=== PATIENT | female | born 1950 | race Caucasian/White ===

== ENCOUNTER 2023-11-02 09:04 | Emergency (ER) | payer BC, MEDICAID ==
[~2023-11-02] VITALS: Ht 175.3 cm; Wt 77.3 kg
[~2023-11-02 09:04] MED LIST: FOLI1TAB27 PO; FURO40TA4 PO; LACT10SO3 PO; OMEP40CA21 PO; OXYM5TAB22 PO; PROP10TA10 PO; RIFA550T PO; SPIR50TA5 PO; TRAZ-251 PO
[2023-11-02] MEDS ORDERED: GABA800T11 PO (09:17)
[2023-11-02] MEDS ORDERED: DULO60CA65 PO (09:17)
[2023-11-02] MEDS ORDERED: LINE600T11 CORPAK (10:51)
[2023-11-02] MEDS: ketorolac tromethamine 15mg/ml inj. IM ONE (11:28)
[2023-11-02 11:33] VITALS: BP 118/78; PULSE 67; RESP 16; TEMP 98.7; O2SAT 98
== END 2023-11-02 11:37 | disposition home or self-care (01) ==
LOC: ER 09:05
DX: L03.032 Cellulitis of left toe (principal); M79.675 Pain in left toe(s); J44.9 Chronic obstructive pulmonary disease, unspecified; Z79.899 Other long term (current) drug therapy; Z90.49 Acquired absence of other specified parts of digestive tract
CPT/HCPCS: 82948; 96372; 99284; J1885